=== PATIENT | female | born 1990 | race Caucasian/White ===

== ENCOUNTER 2017-07-10 11:26 | Emergency (ER) | payer MEDICAID, OTHER ==
[~2017-07-10 11:26] MED LIST: Iopamidol 370 76% 100 ML VIAL ONE
[2017-07-10 12:03] LABS: Bilirubin Negative (Negative); Blood, Urine Negative (Negative); Clarity Clear (Clear); Glucose, Urine (Dipstick) Negative (Negative); Leukocyte Negative (Negative); Nitrite Negative (Negative); Protein, Urine (Dipstick) Negative (Neg-Trace); Specific Gravity, Urine 1.015 (1.005-1.030); Urobilinogen 0.2 mg/dL (0.2-1.0); pH, Urine 6.5 (5.0-9.0)
[2017-07-10 12:11] LABS: Pregnancy Test - Urine (BHCG) Negative (Negative); Pregu Control Background? CLEAR/WHITE (CLR/WHITE); Pregu Control Bar Appear? YES (CONTROL BAR); Specific Gravity 1.015 (1.002-1.036)
[2017-07-10 12:15] LABS: Bacteria/HPF Rare-Few HPF (None Seen); RBC/HPF 0-3 HPF (0-3); Squamous Epithelial 0-3 HPF (0-3); WBC/HPF None Seen HPF (0-3)
[2017-07-10] MEDS ORDERED: Ondansetron ODT 4 MG TAB ONE (13:33)
[2017-07-10] MEDS ORDERED: Ketorolac Tromethamine 30 MG/ML VIAL ONE (13:33)
--- NOTE | 2017-07-10 14:49 | CT ---
CT OF THE ABDOMEN AND PELVIS WITH CONTRAST: Date: 07/10/17 COMPARISON: 06/23/13. HISTORY: Pelvic pain, left greater than right. TECHNIQUE: Multiple contiguous axial images were obtained in a CT of the abdomen and pelvis with contrast. Coron al reformats were performed. FINDINGS: There is a moderate amount of free fluid within the pelvis. The uterus is enlarged and enhances heter ogeneously. No free air is seen in the abdomen or pelvis. The liver, gallbladder, kidneys, adrenal glands, spleen, and pancreas are unremarkable. The appendix is not definitely seen. No abdominal or pelvic lymphadenopathy are present. The osseous structures, visualized inferior thorax, and abdominal wall soft tissues are unremarkable. IMPRESSION: Enlarged, heterogeneous uterus, with free fluid in the pelvis, which is nonspecific. This could be se condary to pelvic inflammatory disease. Correlate with physical examination. POS: JERRY
[2017-07-10] MEDS ORDERED: Doxycycline 100 MG CAP ONE (15:01)
[2017-07-10] MEDS ORDERED: Lidocaine 1% 20 ML MDV ONE (15:01)
[2017-07-10] MEDS ORDERED: cefTRIAXone\\ROCEPHIN 500 MG VIAL ONE (15:01)
== END 2017-07-10 15:21 | disposition home or self-care (01) ==
LOC: MADERS 11:26
DX: N73.9 Female pelvic inflammatory disease, unspecified (principal); F17.210 Nicotine dependence, cigarettes, uncomplicated
CPT/HCPCS: 74177; 81001; 81025; 87086; 96372; 96374; J0696; J1885; J2001; Q0162